=== PATIENT | male | born 1965 | race Caucasian/White ===

== ENCOUNTER 2019-09-13 12:22 | Emergency (ER) | payer OTHER ==
[~2019-09-13] VITALS: Ht 177.8 cm; Wt 106.6 kg
[~2019-09-13 12:22] MED LIST: AMLO10 PO; AMLO5; ASPIR 8181 M1 PO; Alph-E-Mixed400 UNIT PO; BASAGLAR K100 UNIT/1 SC; BASAGLAR K100 UNIT/2 SC; CLOP75 PO; Crestor20 MG PO; GABA100 PO; GLIP10 PO; Humalog100 UNIT/1 SC; LOSARTAN-HCTZ1 EAC1 PO; LOSHYD PO; METF500 PO; METO100ER PO; METO25ER PO; METO50ER PO; NITR.4SL SL; Nortriptyline H50 MG PO; OMEPRAZOLE MAGN20 MG PO; OMEPRAZOLE20 MG PO; ROSU10TA PO; SIMV40 PO; THERA1 EACH PO; TICA90TA PO; TRAM50 PO; TRULICITY0.75 MG/0. SC; TURMERIC500 M2 PO; VERA180ER PO; VERA240ER PO
[2019-09-13 13:13] LABS: BASOPHILS ABSOLUTE AUTO 0.05 K/mm3 (0.00-0.23); BASOPHILS PERCENT AUTO 0 % (0-2); EOSINOPHILS ABSOLUTE AUTO 0.17 K/mm3 (0.00-0.68); EOSINOPHILS PERCENT AUTO 1 % (0-6); Hematocrit 45.4 % (37.0-53.0); Hemoglobin 14.8 g/dL (13.5-17.5); IMMATURE GRAN ABSOLUTE AUTO 0.07 K/mm3 (0.00-0.10); IMMATURE GRAN PERCENT AUTO 1 % (0-1); LYMPHOCYTES ABSOLUTE AUTO 1.91 K/mm3 (0.84-5.20); LYMPHOCYTES PERCENT AUTO 16 % (21-46); MONOCYTES ABSOLUTE AUTO 1.15 K/mm3 (0.16-1.47); MONOCYTES PERCENT AUTO 10 % (4-13); Mean Corpuscular HGB 27.3 pg (26.0-34.0); Mean Corpuscular HGB Conc 32.6 g/dL (31.5-36.5); Mean Corpuscular Volume 84 fL (80-100); Mean Platelet Volume 8.8 fL (9.1-12.4); NEUTROPHILS ABSOLUTE AUTO 8.65 K/mm3 (1.96-9.15); NEUTROPHILS PERCENT AUTO 72 % (41-73); Platelet Count 254 K/mm3 (150-400); RDW Coefficient Variation 14.5 % (11.7-14.2); RDW Standard Deviation 44.3 fL (35.1-46.3); Red Blood Cell Count 5.42 M/mm3 (4.30-5.90)
[2019-09-13 13:24] LABS: Alanine Aminotransfer (ALT/SGP 24 U/L (12-78); Albumin, Blood 3.8 g/dL (3.4-5.0); Alk Phos 89 U/L (50-136); Anion Gap 7 mmol/L (6-16); Aspartate Aminotrans (AST/SGOT 12 U/L (12-37); Bilirubin, Total 0.5 mg/dL (0.1-1.0); Blood Urea Nitrogen 18 mg/dL (8-24); Bun/Creatinine Ratio 15.3 (12.0-20.0); CO2, Blood 27 mmol/L (21-32); Calcium, Blood 9.4 mg/dL (8.5-10.1); Chloride, Blood 105 mmol/L (98-108); Creatinine, Blood 1.18 mg/dL (0.60-1.20); Globulin, Blood 3.7 g/dL (2.2-4.0); Glomerular Filtration Rate >60 (60-); Glucose, Blood 164 mg/dL (70-99); Potassium, Blood 4.1 mmol/L (3.5-5.5); Sodium, Blood 139 mmol/L (136-145); Total Protein, Blood 7.5 g/dL (6.4-8.2); Troponin I <0.015 ng/mL (0.000-0.040)
== END 2019-09-13 14:20 | disposition home or self-care (01) ==
LOC: ER 12:22
PROVIDERS: Physician Assistant
DX: R00.2 Palpitations (principal); E11.22 Type 2 diabetes mellitus with diabetic chronic kidney disease; E11.42 Type 2 diabetes mellitus with diabetic polyneuropathy; I12.9 Hypertensive chronic kidney disease with stage 1 through stage 4 chronic kidney disease, or unspecified chronic kidney disease; N18.2 Chronic kidney disease, stage 2 (mild); F32.9 Major depressive disorder, single episode, unspecified; K21.9 Gastro-esophageal reflux disease without esophagitis; Z87.891 Personal history of nicotine dependence; I25.119 Atherosclerotic heart disease of native coronary artery with unspecified angina pectoris; Z79.82 Long term (current) use of aspirin; Z79.4 Long term (current) use of insulin; Z79.899 Other long term (current) drug therapy
CPT/HCPCS: 71046; 80053; 83880; 84484; 85025; 93005; 93010; 99284-25

== ENCOUNTER 2019-11-17 06:08 | Day surgery (SDC) | payer OTHER ==
[~2019-11-17] VITALS: Ht 177.8 cm; Wt 109.0 kg
--- NOTE | 2019-11-17 10:50 | NUR ---
1035 Assumed care of patient, patient in recliner chair and c/o bad pain. Assisted up to the restroom to void and then out of the recliner and to a bed. Call light in reach and monitor back on. Patient states throat is not numb anylonger. Given ice chips to test throat. Patient tolerating ice chips well and sitting up in the bed.
--- NOTE | 2019-11-17 11:32 | NUR ---
1130 STARTED REMOVING AIR FROM THE TR BAND.
--- NOTE | 2019-11-17 11:37 | NUR ---
1140 ALL AIR REMOVED FROM THE TR BAND. NO BLEEDING NOTED. VVS. RELAXING IN THE BED. DRINKING COFFEE.
--- NOTE | 2019-11-17 13:00 | NUR ---
PT VERBALIZES UNDERSTANDING WRITTEN AND VERBAL ORDERS.
--- NOTE | 2019-11-17 13:10 | NUR ---
PT DRESSES SELF WITHOUT DIFF. VSS. NADN. PT R RADIAL TR BAND REMOVED. DOT DRESSING APPLIED WITH WHITE BOARD IN PLACE. NO BLEEDING OR HEMATOMA NOTED. PT IV DC'D. CATH INTACT. PRESSURE DSG APPLIED. PT DC TO HOME VIA WC BY ESCORT.
== END 2019-11-17 13:20 | disposition home or self-care (01) ==
LOC: MHTC 06:08
PROC: 4A023N7 Measurement of Cardiac Sampling and Pressure, Left Heart, Percutaneous Approach (ICD-10-PCS; principal; 2019-11-17)
PROC: B201YZZ Plain Radiography of Multiple Coronary Arteries using Other Contrast (ICD-10-PCS; principal; 2019-11-17)
DX: I42.1 Obstructive hypertrophic cardiomyopathy (principal); I25.10 Atherosclerotic heart disease of native coronary artery without angina pectoris; I25.2 Old myocardial infarction; I11.9 Hypertensive heart disease without heart failure; E11.9 Type 2 diabetes mellitus without complications; E78.5 Hyperlipidemia, unspecified; Z99.89 Dependence on other enabling machines and devices; G47.33 Obstructive sleep apnea (adult) (pediatric); K21.9 Gastro-esophageal reflux disease without esophagitis; F41.9 Anxiety disorder, unspecified; F32.9 Major depressive disorder, single episode, unspecified; E66.9 Obesity, unspecified; Z95.5 Presence of coronary angioplasty implant and graft; Z79.82 Long term (current) use of aspirin; Z79.02 Long term (current) use of antithrombotics/antiplatelets; Z79.84 Long term (current) use of oral hypoglycemic drugs; Z79.899 Other long term (current) drug therapy; Z87.891 Personal history of nicotine dependence; Z68.34 Body mass index [BMI] 34.0-34.9, adult
CPT/HCPCS: 82947; 93312; 93325; 93454; 93571; 93572; 99152; 99153; C1769; C1887; C1894; J2250; J2704; J3010; J7030; J7040; Q9967

== ENCOUNTER 2019-12-18 16:06 | Emergency (ER) | payer OTHER ==
[~2019-12-18] VITALS: Ht 177.8 cm; Wt 106.6 kg
[2019-12-18 16:53] LABS: BASOPHILS ABSOLUTE AUTO 0.03 K/mm3 (0.00-0.23); BASOPHILS PERCENT AUTO 1 % (0-2); EOSINOPHILS ABSOLUTE AUTO 0.19 K/mm3 (0.00-0.68); EOSINOPHILS PERCENT AUTO 3 % (0-6); Hematocrit 40.3 % (37.0-53.0); Hemoglobin 12.5 g/dL (13.5-17.5); IMMATURE GRAN ABSOLUTE AUTO 0.01 K/mm3 (0.00-0.10); IMMATURE GRAN PERCENT AUTO 0 % (0-1); LYMPHOCYTES PERCENT AUTO 24 % (21-46); MONOCYTES ABSOLUTE AUTO 0.64 K/mm3 (0.16-1.47); MONOCYTES PERCENT AUTO 11 % (4-13); Mean Corpuscular HGB 26.9 pg (26.0-34.0); Mean Corpuscular Volume 87 fL (80-100); Mean Platelet Volume 8.2 fL (9.1-12.4); NEUTROPHILS ABSOLUTE AUTO 3.57 K/mm3 (1.96-9.15); NEUTROPHILS PERCENT AUTO 61 % (41-73); Platelet Count 318 K/mm3 (150-400); RDW Coefficient Variation 14.4 % (11.7-14.2); RDW Standard Deviation 45.2 fL (35.1-46.3); Red Blood Cell Count 4.65 M/mm3 (4.30-5.90); White Blood Cell Count 5.84 K/mm3 (4.00-11.30)
[2019-12-18 17:12] LABS: Alanine Aminotransfer (ALT/SGP 18 U/L (12-78); Albumin, Blood 3.8 g/dL (3.4-5.0); Albumin/Globulin Ratio 1.1 (0.8-1.8); Alk Phos 109 U/L (50-136); Anion Gap 7 mmol/L (6-16); Aspartate Aminotrans (AST/SGOT 15 U/L (12-37); Bilirubin, Total 0.4 mg/dL (0.1-1.0); Blood Urea Nitrogen 11 mg/dL (8-24); CO2, Blood 23 mmol/L (21-32); Calcium, Blood 9.1 mg/dL (8.5-10.1); Chloride, Blood 108 mmol/L (98-108); Creatinine, Blood 0.92 mg/dL (0.60-1.20); Globulin, Blood 3.5 g/dL (2.2-4.0); Glomerular Filtration Rate >60 (60-); Glucose, Blood 102 mg/dL (70-99); Potassium, Blood 3.7 mmol/L (3.5-5.5); Sodium, Blood 138 mmol/L (136-145); Total Protein, Blood 7.3 g/dL (6.4-8.2); Troponin I <0.015 ng/mL (0.000-0.040)
[2019-12-18] MEDS ORDERED: Percocet 5-3251 EACH PO (19:35)
== END 2019-12-18 20:00 | disposition home or self-care (01) ==
LOC: ER 16:06
PROVIDERS: Physician Assistant
DX: R07.9 Chest pain, unspecified (principal); I12.9 Hypertensive chronic kidney disease with stage 1 through stage 4 chronic kidney disease, or unspecified chronic kidney disease; E11.22 Type 2 diabetes mellitus with diabetic chronic kidney disease; N18.2 Chronic kidney disease, stage 2 (mild); E11.42 Type 2 diabetes mellitus with diabetic polyneuropathy; I25.10 Atherosclerotic heart disease of native coronary artery without angina pectoris; E78.5 Hyperlipidemia, unspecified; K21.9 Gastro-esophageal reflux disease without esophagitis; G47.33 Obstructive sleep apnea (adult) (pediatric); Z79.82 Long term (current) use of aspirin; Z79.4 Long term (current) use of insulin; Z79.899 Other long term (current) drug therapy; Z87.891 Personal history of nicotine dependence; Z98.890 Other specified postprocedural states
CPT/HCPCS: 36415; 71046; 71260; 80053; 83880; 84484; 85025; 93005; 93010; 99285-25; Q9967

== ENCOUNTER 2020-08-05 09:15 | Inpatient (IN) | payer OTHER ==
[~2020-08-05] VITALS: Ht 177.8 cm; Wt 109.1 kg
[~2020-08-05 09:15] MED LIST changes: -BASAGLAR K100 UNIT/2 SC; +BASAGLAR K100 UNIT/7 SC; +Percocet 5-3251 EACH PO
[2020-08-05 09:47] LABS: BASOPHILS ABSOLUTE AUTO 0.05 K/mm3 (0.00-0.23); BASOPHILS PERCENT AUTO 1 % (0-2); EOSINOPHILS ABSOLUTE AUTO 0.13 K/mm3 (0.00-0.68); EOSINOPHILS PERCENT AUTO 1 % (0-6); Hematocrit 49.5 % (37.0-53.0); Hemoglobin 15.4 g/dL (13.5-17.5); IMMATURE GRAN ABSOLUTE AUTO 0.07 K/mm3 (0.00-0.10); IMMATURE GRAN PERCENT AUTO 1 % (0-1); LYMPHOCYTES PERCENT AUTO 17 % (21-46); MONOCYTES ABSOLUTE AUTO 1.18 K/mm3 (0.16-1.47); MONOCYTES PERCENT AUTO 12 % (4-13); Mean Corpuscular HGB 25.8 pg (26.0-34.0); Mean Corpuscular HGB Conc 31.1 g/dL (31.5-36.5); Mean Corpuscular Volume 83 fL (80-100); Mean Platelet Volume 8.7 fL (9.1-12.4); NEUTROPHILS ABSOLUTE AUTO 6.53 K/mm3 (1.96-9.15); NEUTROPHILS PERCENT AUTO 68 % (41-73); Platelet Count 244 K/mm3 (150-400); RDW Coefficient Variation 13.8 % (11.7-14.2); RDW Standard Deviation 41.1 fL (35.1-46.3); Red Blood Cell Count 5.98 M/mm3 (4.30-5.90); White Blood Cell Count 9.56 K/mm3 (4.00-11.30)
[2020-08-05 10:21] LABS: Alanine Aminotransfer (ALT/SGP 30 U/L (12-78); Albumin, Blood 4.1 g/dL (3.4-5.0); Albumin/Globulin Ratio 1.2 (0.8-1.8); Alk Phos 86 U/L (50-136); Anion Gap 8 mmol/L (6-16); Aspartate Aminotrans (AST/SGOT 33 U/L (12-37); Bilirubin, Total 0.4 mg/dL (0.1-1.0); Blood Urea Nitrogen 16 mg/dL (8-24); Bun/Creatinine Ratio 19.2 (12.0-20.0); CO2, Blood 22 mmol/L (21-32); Calcium, Blood 9.5 mg/dL (8.5-10.1); Chloride, Blood 111 mmol/L (98-108); Creatinine, Blood 0.83 mg/dL (0.60-1.20); Globulin, Blood 3.4 g/dL (2.2-4.0); Glomerular Filtration Rate >60 (60-); Glucose, Blood 140 mg/dL (70-99); Potassium, Blood 3.9 mmol/L (3.5-5.5); Sodium, Blood 141 mmol/L (136-145); Total Protein, Blood 7.5 g/dL (6.4-8.2)
[2020-08-05] MEDS ORDERED: Flomax0.4 MG PO (11:26)
[2020-08-05] MEDS ORDERED: AMLO5 PO (11:26)
[2020-08-05] MEDS ORDERED: STEGLATRO5 MG PO (11:27)
--- NOTE | 2020-08-05 13:52 | NUR ---
PT TO ICU RM 5 FROM ED. PT ABLE TO STAND AND TRANSFER TO ICU BED WITH STANDBY ASSIST. PT DENIES CHEST PAIN AT THIS TIME BUT REPORTS 6/10 RIGHT SHOULDER PAIN AND HEADACHE. PT STATES "MORPHINE CAUSED THE HEADACHE" AND DOESN'T THINK "SHOULDER PAIN IS CARDIAC RELATED" PT TACHYCARDIC WITH HR IN LOW 100'S AND HYPERTENSIVE. DR. SERVIN AT BEDSIDE, PLAN TO TAKE TO [facility] LABORATORY TECHNICIAN Wednesday08/06/20 FOR ANGIO AROUND NOON. PT OKAY TO EAT UNTIL 4 HRS PRIOR TO PROCEDURE. HOLD ALL BLOOD THINNERS. DR. CONTI AT BEDSIDE, DISCUSSED PT'S CONTINUED HYPERTENSION, ORDER FOR LABETALOL AND ADDITIONAL PAIN MEDICATION. PT EATING AND DRINKING WELL. PT REMINDED TO USE CALL LIGHT FOR ASSISTANCE AMBULATING. BED IN LOW/LOCKED POSITION. CALL LIGHT WITHIN REACH. SEE FULL ADMISSION ASSESSMENT.
[2020-08-05 16:21] LABS: Influenza A, PCR Negative (NEGATIVE); Influenza B, PCR Negative (NEGATIVE); Resp Syncytial Virus, PCR Negative (NEGATIVE); SARS-Cov-2 (COVID-19) PCR, MMC Negative (NEGATIVE)
--- NOTE | 2020-08-05 17:48 | NUR ---
SHIFT SUMMARY NO ACUTE CHANGES SINCE ADMISSION. PT CONTINUES TO DENY CHEST PAIN. ONLY COMPLAINS OF NON-RADIATING RIGHT SHOULDER PAIN THAT HE ATTRIBUTES TO "SLEEPING ON IT WRONG". PT UNDERSTANDS PLAN TO UNDERGO ANGIOGRAM TOMORROW AROUND NOON. PT DENIES NEEDS AT THIS TIME. WILL REPORT TO ONCOMING NURSE.
--- NOTE | 2020-08-06 00:17 | NUR ---
SHIFT ASSESSMENT PT ARRIVED TO UNIT DURING SHIFT. SHIFT ASSESSMENT PUT IN BY PRIOR RN AT BEGINNING OF SHIFT. AGREE WITH ZOYA'Tiffanie DOCUMENTATION OF SHIFT ASSESSMENT.
[2020-08-06 03:04] LABS: BASOPHILS ABSOLUTE AUTO 0.04 K/mm3 (0.00-0.23); BASOPHILS PERCENT AUTO 1 % (0-2); EOSINOPHILS ABSOLUTE AUTO 0.15 K/mm3 (0.00-0.68); EOSINOPHILS PERCENT AUTO 2 % (0-6); Hematocrit 42.8 % (37.0-53.0); Hemoglobin 13.5 g/dL (13.5-17.5); IMMATURE GRAN ABSOLUTE AUTO 0.03 K/mm3 (0.00-0.10); IMMATURE GRAN PERCENT AUTO 0 % (0-1); LYMPHOCYTES ABSOLUTE AUTO 1.67 K/mm3 (0.84-5.20); LYMPHOCYTES PERCENT AUTO 23 % (21-46); MONOCYTES ABSOLUTE AUTO 0.84 K/mm3 (0.16-1.47); MONOCYTES PERCENT AUTO 11 % (4-13); Mean Corpuscular HGB 25.9 pg (26.0-34.0); Mean Corpuscular HGB Conc 31.5 g/dL (31.5-36.5); Mean Corpuscular Volume 82 fL (80-100); Mean Platelet Volume 8.7 fL (9.1-12.4); NEUTROPHILS ABSOLUTE AUTO 4.64 K/mm3 (1.96-9.15); NEUTROPHILS PERCENT AUTO 63 % (41-73); Platelet Count 207 K/mm3 (150-400); RDW Coefficient Variation 13.8 % (11.7-14.2); RDW Standard Deviation 40.7 fL (35.1-46.3); Red Blood Cell Count 5.22 M/mm3 (4.30-5.90); White Blood Cell Count 7.37 K/mm3 (4.00-11.30)
[2020-08-06 03:23] LABS: Alanine Aminotransfer (ALT/SGP 27 U/L (12-78); Albumin, Blood 3.5 g/dL (3.4-5.0); Albumin/Globulin Ratio 1.2 (0.8-1.8); Alk Phos 74 U/L (50-136); Anion Gap 9 mmol/L (6-16); Aspartate Aminotrans (AST/SGOT 18 U/L (12-37); Bilirubin, Total 0.3 mg/dL (0.1-1.0); Blood Urea Nitrogen 16 mg/dL (8-24); Bun/Creatinine Ratio 17.8 (12.0-20.0); CO2, Blood 27 mmol/L (21-32); Calcium, Blood 8.6 mg/dL (8.5-10.1); Chloride, Blood 107 mmol/L (98-108); Glomerular Filtration Rate >60 (60-); Glucose, Blood 151 mg/dL (70-99); Potassium, Blood 3.6 mmol/L (3.5-5.5); Sodium, Blood 143 mmol/L (136-145); Total Protein, Blood 6.5 g/dL (6.4-8.2)
--- NOTE | 2020-08-06 05:30 | NUR ---
SHIFT SUMMARY PT ARRIVED TO UNIT FROM ICU DURING SHIFT. PT ALERT AND ORIENTED X 4. HR STABLE. BP STABLE. OXYGEN SATURATION MAINTAINED ABOVE 92% ON RA. PT ABLE TO TURN SELF IN BED NEEDED. PT REPORTS NO CP OR PRESSURE AT THIS TIME. PT ABLE TO SLEEP T/O SHIFT. WILL BE NPO AFTER BREAKFAST PER PHYSICIAN ORDER. WILL CONTINUE TO MONITOR UNTIL REPORT GIVEN TO DAYSHIFT RN.
--- NOTE | 2020-08-06 13:13 | NUR ---
Patient is sitting up in bed and alert. Patient tells me about his medical history and the procedure that he will have this afternoon. Patient talks about his Sikhism Shi and is tearful at times as he is reflective and shares personal thoughts. Patient discusses things that he would like to do different on the other side of this medical crisis. I normalize patient's experience and provide spiritual guidance and a calming presence. Patient responds well and displays evidence of increased peace. I will continue to remain available to patient and family.
[2020-08-06] MEDS ORDERED: ACET325 PO (17:13)
[2020-08-06] MEDS ORDERED: CLOP75 PO (17:13)
--- NOTE | 2020-08-06 17:58 | NUR ---
PATIENT PROVIDED DISCHARGE INFOR REGARDING FOLLOW UP PLANS, REASON TO RETURN TO THE HOSPITAL, ANGIO SITE CARE, AND MEDICATION INFORMATION. PATIENT VERBALIZED UNDERSTANDING, NO SIGNS OF ACUTE DISTRESS AT THIS TIME. PATIENT WALKED OUT ACCOMPANIED BY STAFF.
--- NOTE | 2020-08-06 18:31 | NUR ---
ADMIT: 08/05/20 DISCHARGE: 08/06/20 DX: ACS CC: [email or web address] FAN CALL: Did not meet with patient prior to discharge. RESIDENCE: Home CAREGIVER: Abraham Ewing, Friend, Jalyn Francisco, Friend, DX: HTN, CAD, GERD, see list DME: DM supplies CCM: [id number] HOME HEALTH: none SUMMARY: 08/06/20- per chart review with Dr. Lancaster, pt was having a cath procedure at noon today. Depending if pt has an intervention or not will determine his d/c plan. If there is an intervention, pt will be staying. If he does not have intervention, pt will be d/c later today. At time of chart review, pt was still in the biology laboratory assistant. =merlyn Lancaster discharge home. [place]en fan to follow up with patient. medical staff coordinator did not meet with patient prior to discharge. 1: NSTEMI (non-ST elevated myocardial infarction)
[2020-10-24] MEDS ORDERED: Amiodarone HCl200 MG PO (15:43)
[2020-10-24] MEDS ORDERED: LOSARTAN POTAS100 M1 PO (15:44)
[2020-10-24] MEDS ORDERED: ELIQUIS5 MG PO (15:44)
== END 2020-08-06 17:56 | disposition home or self-care (01) | DRG 282 ==
LOC: ER 09:15 → PCU 10:46 → ICUE 10:46 → PCU 22:35
PROVIDERS: Internal Medicine Interventional Cardiology; Physician Assistant; ADMIT Family Medicine
PROC: B2111ZZ Fluoroscopy of Multiple Coronary Arteries using Low Osmolar Contrast (ICD-10-PCS; principal; 2020-08-06)
PROC: B240ZZ3 Ultrasonography of Single Coronary Artery, Intravascular (ICD-10-PCS; 2020-08-06)
DX: I48.0 Paroxysmal atrial fibrillation (principal); I21.A1 Myocardial infarction type 2; I42.1 Obstructive hypertrophic cardiomyopathy; Z79.82 Long term (current) use of aspirin; Z79.4 Long term (current) use of insulin; E11.42 Type 2 diabetes mellitus with diabetic polyneuropathy; G47.33 Obstructive sleep apnea (adult) (pediatric); E11.22 Type 2 diabetes mellitus with diabetic chronic kidney disease; N18.2 Chronic kidney disease, stage 2 (mild); K21.9 Gastro-esophageal reflux disease without esophagitis; Z87.891 Personal history of nicotine dependence; Z95.5 Presence of coronary angioplasty implant and graft; E66.01 Morbid (severe) obesity due to excess calories; Z68.34 Body mass index [BMI] 34.0-34.9, adult; I25.119 Atherosclerotic heart disease of native coronary artery with unspecified angina pectoris; I11.0 Hypertensive heart disease with heart failure
CPT/HCPCS: 0241U; 36415; 71046; 76937; 80053; 82947; 83690; 84484; 85025; 85347; 92978; 93005; 93010; 93246; 93306; 93454; 94660; 99152; 99153; 99285-25; A9270; C1753; C1769; C1887; C1894; G0008; J1644; J2060; J2250; J2270; J2405; J3010; J7030; J7050; Q2038; Q9967

== ENCOUNTER 2020-10-25 10:08 | Day surgery (SDC) | payer OTHER ==
[~2020-10-25] VITALS: Ht 177.8 cm; Wt 111.0 kg
[~2020-10-25 10:08] MED LIST changes: +ACET325 PO; +AMLO5 PO; +Amiodarone HCl200 MG PO; +ELIQUIS5 MG PO; +Flomax0.4 MG PO; +LOSARTAN POTAS100 M1 PO; +STEGLATRO5 MG PO
[2020-10-25] MEDS ORDERED: NORT10 PO (10:46)
--- NOTE | 2020-10-25 17:51 | NUR ---
SHIFT SUMMARY PT ADMITTED PCU EXTENDED STAY RECOVERY FROM [facility] THIS AFTERNOON S/P ICD PLACEMENT TO LEFT CHEST. PT IS ALERT AND ORIENTEDx4, FOLLOWS DIRECTIONS. SLING TO LEFT ARM PLACED AND PRESSURE DRESSING TO LEFT CHEST C/D/I. VITALS HAVE REMAINED STABLE. PT C/O INCISIONAL PAIN, MEDICATED WITH GOOD RESPONSE TO PRN PAIN MEDICATIONS. SINUS RHYTHM ON THE MONITOR, WITH OCCASIONAL PACER SPIKE NOTED.
--- NOTE | 2020-10-26 05:20 | NUR ---
SHIFT SUMMARY PT RESTED SOME THROUGHOUT NIGHT. C/O PAIN AT INCISION SITE - FUEL ATTENDANT TO CALL MD TO CHANGE FREQUENCY OF PAIN MEDICATION. PAIN MEDS Q4 PRN NOW - TAKING Q4 PER PT REQUEST. ALERT AND ORIENTED, ABLE TO MAKE NEEDS KNOWN - COOPERATIVE WITH PLAN OF CARE. SATS >90% ON ROOM AIR. TELE PACED 65. STAND BY ASSIST/PIVOTS IN BED TO USE URINAL. INCISIONAL SITE C/D/I. PT TOLERATING DIET. IV ABX INFUSED, PT READY TO GO HOME. VSS. CALL LIGHT WITHIN REACH, BED IN LOWEST POSTIION. WILL CONTINUE TO MONITOR.
--- NOTE | 2020-10-26 08:29 | NUR ---
PT AWAKE AND ALERT SITTING UP IN BED. PT C/O PAIN 12/26 TO AICD SITE/LEFT CHEST WALL. PRESSURE DRSG IN PLACE, C/D/I. SLING TO LEFT ARM. AICD BEING INTERROGATED NOW. CHEST XRAY TO BE COMPLETED SHORTLY. PT IN SINUS RHTHYM IN 70'S. PT W HTN; HTN MEDS GIVEN. PTS SATS 96% ON RA. PLAN; PT TO BE DC'D HOME TODAY.
--- NOTE | 2020-10-26 11:30 | NUR ---
Peripheral IV to lt AC removed at this time.
--- NOTE | 2020-10-26 11:47 | NUR ---
VERBAL AND WRITTEN DC'D INFO GIVEN TO PT WITH CLEAR UNDERSTANDING. RX SENT W PT FOR KEFLEX. PT HAS TWO F/U APPOINTMENTS SCHEDULED. PRESSURE DRSG REMOVED, OPSITE TO SURGICAL SITE INTACT. SMALL AMT OF DRAINAGE TO PAD. AICD INFO INCLUDING CARD SENT WITH PT. SLING PLACED TO LEFT ARM. PT ESCORTED OUT IN STABLE CONDITION AT 1130.
== END 2020-10-26 11:45 | disposition home or self-care (01) ==
LOC: MHTC 10:08 → ICUE 15:31 → MHTC 10-26 11:45
DX: I42.2 Other hypertrophic cardiomyopathy (principal); I47.2 Ventricular tachycardia; I48.0 Paroxysmal atrial fibrillation; I44.7 Left bundle-branch block, unspecified; I44.0 Atrioventricular block, first degree; I25.10 Atherosclerotic heart disease of native coronary artery without angina pectoris; I10 Essential (primary) hypertension; E11.9 Type 2 diabetes mellitus without complications; E78.5 Hyperlipidemia, unspecified; G47.33 Obstructive sleep apnea (adult) (pediatric); K21.9 Gastro-esophageal reflux disease without esophagitis; E66.9 Obesity, unspecified; I25.2 Old myocardial infarction; Z87.891 Personal history of nicotine dependence; Z95.5 Presence of coronary angioplasty implant and graft; Z79.4 Long term (current) use of insulin; Z68.35 Body mass index [BMI] 35.0-35.9, adult
CPT/HCPCS: 33249; 71045; 71046; 76937; 82947; 93005; 93010; 99152; 99153; A9270; C1721; C1781; C1894; C1895; C1898; J0690; J1644; J2250; J3010; J7030; J7040